=== PATIENT | female | born 1960 | race African-American/Black ===

== ENCOUNTER 2022-04-01 15:19 | Emergency (ER) | payer MEDICAID ==
[~2022-04-01] VITALS: Ht 170.2 cm; Wt 140.0 kg
[2022-04-01 15:21] VITALS: BP 131/86
[2022-04-01] MEDS ORDERED: ACETAMINOPHEN 325MG TABLET PO ONE (15:45)
[2022-04-01] MEDS ORDERED: TOPUD MT (15:48)
[2022-04-01] MEDS ORDERED: CYCL10TA21 MT (15:48)
== END 2022-04-01 16:31 | disposition home or self-care (01) ==
LOC: ER 15:19
DX: M54.50 Low back pain, unspecified (principal); G89.29 Other chronic pain; E11.9 Type 2 diabetes mellitus without complications; Z85.9 Personal history of malignant neoplasm, unspecified; E05.90 Thyrotoxicosis, unspecified without thyrotoxic crisis or storm
CPT/HCPCS: 99283